=== PATIENT | female | born 1950 | race Caucasian/White ===

== ENCOUNTER 2020-07-08 07:31 | Emergency (ER) | payer OTHER, MEDICAID ==
[~2020-07-08] VITALS: Ht 147.3 cm; Wt 75.3 kg
[~2020-07-08 07:31] MED LIST: BENA5TAB13 PO; GLIP10TA3 PO
--- NOTE | 2020-07-08 07:31 | NUR ---
Patient BIBA ALS, transferred to bed 5. RN evaluating patient at bedside.
--- NOTE | 2020-07-08 07:32 | NUR ---
Dr. Vines is evaluating the patient at bedside.
[2020-07-08 07:36] VITALS: BP 183/73
--- NOTE | 2020-07-08 07:40 | NUR ---
70 y/o female from home c/o possible allergic reaction. Pt states she woke up at 0600 with facial and lip swelling. Used epi pen at home at 0630. Denies respiratory symptoms.
[2020-07-08] MEDS ORDERED: methylPREDNISolone SS 125 MG in WATER STERILE 2 ML IV ONE (07:45)
[2020-07-08] MEDS ORDERED: methylPREDNISolone SS 125 MG/2 ML VIAL ONE (07:51)
[2020-07-08] MEDS ORDERED: WATER STERILE 10 ML MC ONE (07:51)
--- NOTE | 2020-07-08 08:08 | NUR ---
*PATIENT FAMILY CONTACT* Spoke with patient's son Steven Stanford for an update. [phone]
[2020-07-08 10:25] VITALS: BP 143/60
--- NOTE | 2020-07-08 10:26 | NUR ---
Patient discharged with v/s stable. Written and verbal after care instructions given and explained. Patient alert, oriented and verbalized understanding of instructions. Ambulatory with steady gait. All questions addressed prior to discharge. ID band removed. Patient advised to follow up with PMD. Rx of Prednisone, Epipen, pepcid, and diphenhydramine Hydrochloride given. Patient educated on indication of medication including possible reaction and side effects. Opportunity to ask questions provided and answered.
--- NOTE | 2020-07-11 10:24 | NUR ---
LATE ENTRY -- SOLUMEDROL INFUSION COMPLETED AT 0755 07/08
== END 2020-07-08 10:26 | disposition home or self-care (01) ==
LOC: MED 07:31
DX: T78.40XA Allergy, unspecified, initial encounter (principal); E11.9 Type 2 diabetes mellitus without complications; I10 Essential (primary) hypertension; Z98.890 Other specified postprocedural states; Z90.710 Acquired absence of both cervix and uterus; Z88.8 Allergy status to other drugs, medicaments and biological substances; Z91.012 Allergy to eggs; X58.XXXA Exposure to other specified factors, initial encounter
CPT/HCPCS: 96374; 99283; J2930

== ENCOUNTER 2021-01-10 11:18 | Emergency (ER) | payer OTHER, MEDICAID ==
[~2021-01-10] VITALS: Ht 147.3 cm; Wt 70.8 kg
[2021-01-10 11:38] VITALS: BP 144/85
--- NOTE | 2021-01-10 11:41 | NUR ---
Pt ambulated to ER bed 11 with daughter.
--- NOTE | 2021-01-10 11:43 | NUR ---
70 Y/O FEMALE BIB DAUGHTER FROM HOME, C/O N/V/D AND HEADACHE 10/10 DESCRIBES SHARP NON-RADIATING TO HEAD X2DAYS, BLURRY VISION, R EYE DEVIATION TO 2 DAYS. PUPILS 3 MM. PT STATES FAMILY AT HOME WITH SAME SYMPTOMS. DENIES FEVER/CHILLS. ABDOMEN IS SOFT, ROUND, NON-TENDER TO PALPATION. BOWEL SOUNDS ACTIVE X4 LAST BM 01/10/21. PMH: HTN, DM, ASTHMA, RA, LIVER CIRRHOSIS ALLERGIES: EGGS
[2021-01-10] MEDS ORDERED: ONDANSETRON 4 MG ODT PO ONE (11:55)
--- NOTE | 2021-01-10 11:57 | NUR ---
marine engineering technicians at pt bedside.
--- NOTE | 2021-01-10 12:02 | NUR ---
Gave UA to minilab operator.
--- NOTE | 2021-01-10 12:08 | NUR ---
EMT at pt bedside for EKG.
[2021-01-10 12:15] LABS: BASOPHILS % (AUTO) 0.1 % (0.0-2.0); EOSINOPHILS % (AUTO) 0.3 % (0.0-4.0); HEMATOCRIT 39.8 % (36-48); HEMOGLOBIN 13.9 g/dL (12.0-16.0); LYMPHOCYTES # (AUTO) 0.4 K/uL (2.5-16.5); LYMPHOCYTES % (AUTO) 5.7 % (20.5-51.1); MEAN CORPUSCULAR HEMOGLOBIN 33 pg (27-31); MEAN CORPUSCULAR HGB CONC 35 g/dL (33-37); MEAN CORPUSCULAR VOLUME 93.6 fL (80-94); MONOCYTES # (AUTO) 0.1 K/uL (0.8-1.0); MONOCYTES % (AUTO) 1.9 % (1.7-9.3); NEUTROPHILS # (AUTO) 7.2 K/uL (1.8-7.7); PLATELET COUNT (AUTO) 192 K/uL (140-450); RED BLOOD CELL COUNT(AUTO) 4.25 MIL/uL (4.20-5.40); RED CELL DISTRIBUTION WIDTH 13.2 % (11.6-13.7); WHITE BLOOD COUNT (AUTO) 7.8 K/uL (4.8-10.8)
[2021-01-10 12:20] LABS: APPEARANCE,URINE CLEAR (CLEAR); BILIRUBIN,URINE NEGATIVE (NEGATIVE); BLOOD, URINE NEGATIVE (NEGATIVE); COLOR,URINE YELLOW (YELLOW); LEUKOCYTE ESTERASE ,URINE NEGATIVE (NEGATIVE); NITRITE, URINE NEGATIVE (NEGATIVE); PH,URINE 5.5 (5.0-9.0); UGLUCOSE NEGATIVE (NEGATIVE)
[2021-01-10 12:27] LABS: RBC,URINE 0-5 /HPF (0-5); WBC,URINE 0-5 /HPF (0-5)
[2021-01-10 13:09] LABS: ALBUMIN 4.7 g/dL (3.4-5.0); ANION GAP 11.7 (8-16); ASPARTATE AMINOTRANSFERASE 21 U/L (15-37); CHLORIDE 107 mmol/L (98-107); CREATININE 0.8 mg/dL (0.6-1.3); GLUCOSE 160 mg/dL (74-106); LIPASE 152 U/L (73-393); POTASSIUM 3.7 mmol/L (3.5-5.1); SODIUM SERUM 142 mmol/L (136-145); TOTAL BILIRUBIN 0.9 mg/dL (0.0-1.0); UREA NITROGEN, BLOOD 14 mg/dL (7-18)
[2021-01-10] MEDS ORDERED: NACL 0.9% 1,000 ML IV ONE ×2 (13:25→14:45)
--- NOTE | 2021-01-10 13:45 | NUR ---
PT TAKEN TO CT VIA [facility]
--- NOTE | 2021-01-10 14:03 | NUR ---
PT [facility]SIDE [facility]
--- NOTE | 2021-01-10 14:19 | NUR ---
Dr. Iraheta at pt bedside for further evaluation.
[2021-01-10] MEDS ORDERED: PROCHLORPERAZINE 10 MG/2 ML VIAL IVP ONE (14:20)
[2021-01-10] MEDS ORDERED: ACETAMINOPHEN 325 MG TAB PO ONE (14:20)
[2021-01-10] MEDS ORDERED: KETOROLAC 15 MG/ML VIAL IVP ONE (14:20)
--- NOTE | 2021-01-10 14:20 | NUR ---
PT DENIED COVID SWAB FOR POSSIBLE PENDING ADMISION. MD RAMÍREZ MADE AWARE AND COMMISSARY OFFICER LARUEN MADE AWARE Addendum: 01/10/21 at 1439 by [email or web address] PT STATED SHE IS FULLY VACCINATED FROM COVID
[2021-01-10] MEDS ORDERED: MORPHINE SULFATE 4 MG/ML SYR IVP ONE (14:25)
--- NOTE | 2021-01-10 14:31 | NUR ---
Pt spo2 91% on RA, placed on 2L NC 98%. made aware.
--- NOTE | 2021-01-10 14:47 | NUR ---
PT TAKEN TO CT VIA [facility]
--- NOTE | 2021-01-10 15:05 | NUR ---
PT RETURNED TO BEDSIDE FROM CT VIA GURNEY. XRAY BEDSIDE WITH PT
--- NOTE | 2021-01-10 16:03 | NUR ---
PO CHALLENGE PERFORMED BEDSIDE WITH WATER. PT DENIES ANY TROUBLE SWALLOWING WATER.
[2021-01-10] MEDS ORDERED: ONDA-24 SL (17:01)
[2021-01-10] MEDS ORDERED: FAMO-90 PO (17:01)
[2021-01-10 17:10] VITALS: BP 154/69
--- NOTE | 2021-01-10 17:10 | NUR ---
Patient discharged with v/s stable. Written and verbal after care instructions given FOR VIRAL GASTROENTERITIS and explained. Patient alert, oriented and verbalized understanding of instructions. Ambulatory with steady gait. All questions addressed prior to discharge. ID band removed. Patient advised to follow up with PMD. Rx of ZOFRAN 4MG ODT PRN Q8H PRN N/V, AND PEPCID 20MG PO BID PRN ACID REFLUX given. Patient educated on indication of medication including possible reaction and side effects. Opportunity to ask questions provided and answered.
== END 2021-01-10 17:10 | disposition home or self-care (01) ==
LOC: MED 11:18
DX: R10.9 Unspecified abdominal pain (principal); R19.7 Diarrhea, unspecified; R11.2 Nausea with vomiting, unspecified; E86.0 Dehydration; R00.0 Tachycardia, unspecified; J45.909 Unspecified asthma, uncomplicated; E11.9 Type 2 diabetes mellitus without complications; I10 Essential (primary) hypertension; Z88.8 Allergy status to other drugs, medicaments and biological substances; Z91.012 Allergy to eggs; Z79.84 Long term (current) use of oral hypoglycemic drugs; Z79.899 Other long term (current) drug therapy
CPT/HCPCS: 36415; 70450; 71045; 74176; 80053; 81001; 83605; 83690; 84484; 85025; 87040; 93005; 96361; 96374; 99285; J0780; J7030; Q0162

== ENCOUNTER 2021-01-19 20:07 | Emergency (ER) | payer OTHER, MEDICAID ==
[~2021-01-19] VITALS: Ht 147.3 cm; Wt 70.8 kg
[~2021-01-19 20:07] MED LIST changes: +FAMO-90 PO; +ONDA-24 SL
[2021-01-19 20:17] VITALS: BP 179/69
--- NOTE | 2021-01-19 20:20 | NUR ---
70 Y/O PATIENT PRESENTS TO ED WITH TOOTHACHE. PT STATES "I AM IN SO MUCH PAIN I FEEL LIKE MY TOOTH WAS INFECTED." DENIES N/V/D; SKIN IS PINK/WARM/DRY; AAOX4 WITH EVEN AND STEADY GAIT; LUNGS CLEAR BL; HR EVEN AND REGULAR; PT DENIES ANY FEVER, CP, SOB, OR COUGH AT THIS TIME; PATIENT STATES PAIN OF 10/10 AT THIS TIME; VSS; PATIENT POSITIONED FOR COMFORT; HOB ELEVATED; BEDRAILS UP X2; BED DOWN. ER MD MADE AWARE OF PT STATUS. ALLERGIES: EGGS PMH: DM. HTN, ASTHMA
--- NOTE | 2021-01-19 20:20 | NUR ---
TO LOBBY A/W BED AMBULATORY
--- NOTE | 2021-01-19 21:10 | NUR ---
AMBULATED TO BED 2
[2021-01-19] MEDS ORDERED: HYDROcodone/APAP 5/325 MG 1 TAB TAB PO ONE (21:40)
[2021-01-19] MEDS ORDERED: AMOXIL/CLAVULANATE 875/125 MG 1 TAB PO ONE (22:25)
[2021-01-19] MEDS ORDERED: LIDOCAINE 2% 1000 MG/50 ML VIAL INJ ONE (22:25)
[2021-01-19] MEDS ORDERED: IBUP-2218 PO (23:19)
[2021-01-19] MEDS ORDERED: CLON0.1T16 PO (23:19)
[2021-01-19] MEDS ORDERED: AMOX-1000 PO (23:19)
--- NOTE | 2021-01-19 23:45 | NUR ---
Patient discharged with v/s stable. Written and verbal after care instructions given and explained. Patient alert, oriented and verbalized understanding of instructions. Ambulatory with steady gait. All questions addressed prior to discharge. ID band removed. Patient advised to follow up with PMD. Rx of MOTRIN, CATAPRES, AND AMOXICCILIN given. Patient educated on indication of medication including possible reaction and side effects. Opportunity to ask questions provided and answered.
[2021-01-19 23:47] VITALS: BP 145/75
== END 2021-01-19 23:45 | disposition home or self-care (01) ==
LOC: MED 20:07
DX: K08.89 Other specified disorders of teeth and supporting structures (principal); I10 Essential (primary) hypertension; E11.9 Type 2 diabetes mellitus without complications; J45.909 Unspecified asthma, uncomplicated; Z91.018 Allergy to other foods; Z79.899 Other long term (current) drug therapy
CPT/HCPCS: 64400; 99284; J2001